=== PATIENT | female | born 1975 | race African-American/Black ===

== ENCOUNTER → 2024-02-01 06:24 | Day surgery (SDC) | payer BC, SELFPAY | LOC: GI 06:24 | PROVIDERS: ATTENDING PHYSICIAN Internal Medicine Gastroenterology | DX: D50.9 Iron deficiency anemia, unspecified (principal); K55.20 Angiodysplasia of colon without hemorrhage; K64.8 Other hemorrhoids; K31.89 Other diseases of stomach and duodenum; K29.00 Acute gastritis without bleeding | CPT/HCPCS: 45378; 43239; 88305; 88342 ==

== ENCOUNTER → 2024-12-04 07:18 | Outpatient (REF) | payer BC, SELFPAY ==
[2024-12-04] VITALS (7 sets, daily range): BP systolic 65–132; BP diastolic 76–91
[2024-12-04 07:47] LABS: Hematocrit 31.3 % (37.0-47.0); Hemoglobin 10.1 g/dL (12.0-16.0); Mean Corp Hgb Conc. 32.3 g/dL (33.0-37.0); Mean Corpuscular Volume 82.8 fL (81.0-99.0); Nucleated Red Blood Cells % 0 %; Platelet Count 349 10^3/uL (130-400); Red Cell Dist. Width 13.2 % (11.5-14.5)
[2024-12-04] MEDS: ATIVAN 0.5 MG PO (07:51)
[2024-12-04 08:02] LABS: INR 1.04; PT 13.9 Sec (11.4-14.6)
== END ==
LOC: RADI 07:18
PROVIDERS: ATTENDING PHYSICIAN Internal Medicine Hematology & Oncology; FAMILY PHYSICIAN Internal Medicine; REFERRING PHYSICIAN Physician Assistant
DX: D64.9 Anemia, unspecified (principal); Z01.812 Encounter for preprocedural laboratory examination; Z01.818 Encounter for other preprocedural examination
CPT/HCPCS: 36415; 38222; 77012; 85025; 85610; 88305; 88311; 88312; 88313